=== PATIENT | female | born 1945 | race Hispanic/Latino ===

== ENCOUNTER 2017-01-30 05:35 | Outpatient (CLI) | payer BC ==
[~2017-01-30] VITALS: Ht 160 cm; Wt 76.2 kg
[~2017-01-30 05:35] MED LIST: ESTROBLEND PO; MTC5T; NF-ESOM40C; OMEP20CA12 PO; PRAV80TA2 PO; TOLTA4 PO; TOLTERODINE
[2017-01-30] MEDS ORDERED: TOLT4CAP13 PO (12:31)
[2017-01-30] MEDS ORDERED: OMEP40CA36 PO (12:31)
[2017-01-30] MEDS ORDERED: PRAV40TA2 PO (12:31)
[2017-01-30] MEDS ORDERED: LOSA25TA21 PO (12:31)
== END 2017-01-30 12:51 ==
LOC: PREOP 05:35
PROVIDERS: ATTEND Surgery
DX: Z01.818 Encounter for other preprocedural examination (principal); Z12.11 Encounter for screening for malignant neoplasm of colon

== ENCOUNTER 2017-02-03 07:18 | Day surgery (SDC) | payer BC ==
[~2017-02-03] VITALS: Ht 160 cm; Wt 76.2 kg
[~2017-02-03 07:18] MED LIST changes: +LOSA25TA21 PO; +OMEP40CA36 PO; +PRAV40TA2 PO; +TOLT4CAP13 PO
--- OUTSIDE RECORDS SUMMARY | 2017-02-03 07:29 | XMS REPORT ---
Author JUANA Stanton Organization [employer] Address Unknown Phone Unavailable Care Team Providers Care Author Name Role Phone JUANA BUENO Unavailable Allergies No Known Allergies Problems Problem Type Condition Code Onset Dates Condition Status Assessment Encounter for immunization Z23 Active Medications No Known Medications Procedures Procedure Coding System Code Date FLUARIX QUAD (3 & UP)-GSK-2014 CPT-4 65719 Jan 05, 2015 SINGLE IMMUNIZATION ADMIN CPT-4 66932 Jan 05, 2015 TDAP (BOOSTRIX) CPT-4 83598 Jan 05, 2015 IMMUNIZATION ADMIN, EACH ADD (please include units) CPT-4 16493 Jan 05, 2015 Results No Known Results Immunizations Vaccine Administration Date FLUARIX QUAD (3 & UP)-GSK-2014Jan 05, 2015 TDAP (BOOSTRIX) Jan 05, 2015 Summary Purpose [employer] Submission
--- OUTSIDE RECORDS SUMMARY | 2017-02-03 07:29 | XMS REPORT | Continuity of Care Document ---
Author Author [facility] Organization [facility] Address Unknown Phone Unavailable Allergies Active Description Code Type Severity Reaction Onset Reported/Identified Relationship to Patient Clinical Status Yes NKANo Known Allergies NKA Miscellaneous Allergy Moderate N/ A 06/16/2007 Yes diphenhydramine HCl [id number] Drug Allergy Unknown N/A 01/30/2017 Medications Problems Date Dx Coded Attending Type Code Diagnosis Diagnosed By 06/22/2010 Ot 574.10 05/23/2015 Ot V76.12 05/23/2015 Ot 574.20 05/23/2015 Ot V72.63 05/23/2015 Ot V74.8 05/23/2015 Ot V76.12 05/23/2015 Ot 530.5 05/23/2015 Ot 530.81 05/23/2015 Ot 787.03 05/23/2015 Ot 789.00 05/23/2015 Ot 553.3 05/23/2015 Ot 562.10 05/23/2015 Ot 787.01 05/23/2015 Ot 789.06 05/23/2015 Ot 535.50 05/23/2015 Ot V58.69 05/23/2015 Ot V72.84 05/23/2015 Ot 240.9 05/23/2015 Ot 785.6 05/23/2015 ROCCO ZAMBRANO [facility] Ot 241.0 05/23/2015 ROCCO ZAMBRANOP Ot V76.12 Procedures Results Encounters ACCT No. Visit Date/Time Discharge Status Pt. Type Provider Facility Loc./Unit Complaint [id number] 01/30/2017 05:35:00 2016 12:51:00 DIS Outpatient BALTAZAR BANKS MD [facility] PREOP COLONOSCOPY [id number] 05/23/2015 09:26:00 2015 23:59:59 CLS Outpatient COREY FARIAS APRN [facility] RAD [id number] 04/12/2013 09:21:00 2013 23:59:59 CLS Outpatient KENYA ROCCO Tna WELLNESS PROGRAM ADMINISTRATOR [facility] RAD [id number] 01/07/2013 10:29:00 2012 23:59:59 CLS Outpatient KENYANEVILLEROCCO M WELLNESS PROGRAM ADMINISTRATOR [facility] RAD [id number] 02/03/2017 07:18:00 ACT Outpatient DARREN BRAVO, BALTAZAR Tan [facility] ENDO SCREENING [id number] 12/30/2011 12:30:00 Document Registration [id number] 09/30/2011 06:39:00 Document Registration [id number] 09/27/2011 08:25:00 Document Registration [id number] 08/26/2011 07:42:00 Document Registration [id number] 07/24/2011 08:11:00 Document Registration [id number] 06/13/2011 08:20:00 Document Registration [id number] 06/04/2011 07:41:00 Document Registration [id number] 06/22/2010 05:32:00 Document Registration [id number] 06/21/2010 09:58:00 Document Registration [id number] 06/11/2010 08:13:00 Document Registration
[2017-02-03] MEDS ORDERED: NS IV 500 ML 500 ML IV PRN (07:30)
[2017-02-03 07:45] VITALS: BP 124/87
[2017-02-03] MEDS ORDERED: MIDAZOLAM 2 MG/2 ML (VERSED) VIAL ONE ×4 (07:56)
[2017-02-03] MEDS ORDERED: fentaNYL INJECTION 100 MCG/2 ML AMP ONE (07:56)
--- NOTE | 2017-02-03 08:10 | Conscious Sedation/ASA ---
Conscious Sedation Pre-Proced Time Reviewed: 07:58 ASA Class: 2 Airway Mallampati Classification: ([place] appropriate class) I. II. III, IV Lungs Heart ASA score ASA 1: a normal healthy patient ASA 2: a patient with a mild systemic disease (mid diabetes, controlled hypertension, obesity ASA 3: a patient with a severe systemic disease that limits activity (angina , COPD, prior Myocardial infarction) ASA 4: a patient with an incapacitating disease that is a constant threat to life (CHF, renal failure) ASA 5: a moribund patient not expected to survive 24 hrs. (ruptured aneurysm) ASA 6: a declared brain patient whose organs are being harvested. For emergent operations, add the letter E after the classification Grade 1 Sedation Plan: Discussed options with patient/fam Note The patient is an appropriate candidate to undergo the planned procedure, sedation, and anesthesia. The patient immediately re-assessed prior to indication. BALTAZAR BANKS MD Feb 03, 2017 8:10 am
--- NOTE | 2017-02-03 08:10 | History & Physicial ---
History of Present Illness History of Present Illness Reason for visit/HPI to undergo screening colonoscopy. She reports a personal history of polyps and a family history of colon cancer in her older sister. Date of Admission Date Seen by Provider: Feb 03, 2017 Time Seen by Provider: 08:08 I consulted on this patient on 02/03/17 08:08 Attending Physician Baltazar Juarez MD Admitting Physician Luba Nichole MD Consult Allergies and Home Medications Allergies Coded Allergies: diphenhydramine HCl (Unverified Allergy, Unknown, 01/30/17) Home Medications Losartan Potassium 25 Mg Tablet, 25 MG PO DAILY, (Reported) Omeprazole 40 Mg Capsule.dr, 40 MG PO DAILY, (Reported) Pravastatin Sodium 40 Mg Tablet, 40 MG PO DAILY, (Reported) Tolterodine Tartrate 4 Mg Cap.er.24h, 4 MG PO DAILY, (Reported) Past Qdmlkuo-Lhqbds-Urwgej Hx Patient Social History Marrital Status: Employed/Student: employed Alcohol Use: Occasionally Uses Number of Drinks Today: 0 Recreational Drug Use: No Smoking Status: Never a Smoker Recent Foreign Travel: No Contact w/other who traveled: No Recent Hopitalizations: No Recent Infectious Disease Expo: No Seasonal Allergies Seasonal Allergies: No Surgeries Yes Gallbladder, Hysterectomy Respiratory No Cardiovascular Yes Hypertension Neurological No Reproductive System Hx Reproductive Disorders: No Sexually Transmitted Disease: No 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 Genitourinary No Gastrointestinal No Musculoskeletal No Endocrine History of Endocrine Disorders: No HEENT History of HEENT Disorders: No Cancer No Psychosocial History of Psychiatric Problem: No Integumentary History of Skin or Integumenta: No Family Medical History Significant Family History: Cancer Constitutional: no symptoms reported EENTM: no symptoms reported Respiratory: no symptoms reported Cardiovascular: no symptoms reported Gastrointestinal: no symptoms reported Genitourinary: no symptoms reported Musculoskeletal: no symptoms reported Skin: no symptoms reported Psychiatric/Neurological: No Symptoms Reported Physical Exam Vital Signs Vital Sign - Last 12Hours 02/03/17 07:45 Temp 97.1 Pulse 85 Resp 16 B/P (MAP) 124/87 Pulse Ox 96 O2 Delivery Room Air Capillary Refill : General Appearance: No Apparent Distress HEENT: Normal ENT Inspection Neck: Normal Inspection Respiratory: Lungs Clear Cardiovascular: Regular Rate, Rhythm Gastrointestinal: Non Tender, Soft Rectal: Deferred Extremity: Normal Inspection Neurologic/Psychiatric: Oriented x3 Skin: Warm/Dry Assessment/Plan Assessment and Plan lady with a personal history of polyps and a family history of colon cancer. For screening colonoscopy. Details reviewed including iatrogenic perforation and post-polypectomy bleeding. Seems to be in agreement to proceed. Problems: BALTAZAR JUAREZ MD Feb 03, 2017 8:10 am
[2017-02-03] MEDS: MIDAZOLAM 2 MG/2 ML (VERSED) VIAL IVP PRN ×2 (08:13→08:15)
[2017-02-03] MEDS: fentaNYL INJECTION 100 MCG/2 ML AMP IVP PRN ×2 (08:16→08:18)
--- NOTE | 2017-02-03 08:38 | Endo Procedure Record ---
Endo Procedure Report Date of Procedure Feb 03, 2017 Surgeon (s) BALTAZAR BANKS MD Post Procedure/Op Diagnosis 1.1 mm rectal polyp 2. Sigmoid diverticulosis Procedure Performed colonoscopy to cecum Hot biopsy polypectomy Description of Procedure Anesthesia Type: Conscious Sedation Specimen(s) collected/removed rectal polyp Description of the Procedure Indication for procedure: This lady came in for surveillance colonoscopy. She reported a personal history of polyps and family history of colon cancer. Informed consent was obtained after reviewing the procedure in detail. Description of the procedure: She was placed in left lateral decubitus position and her vital signs were monitored. Conscious sedation was achieved using Versed and fentanyl. Digital rectal examination was unremarkable. The colonoscope was then introduced into the rectum and advanced all the way up to the cecum. The quality of bowel preparation was excellent. The scope was then withdrawn slowly and the mucosa examined in a systematic fashion. Findings: 1. 1 mm polyp at the distal rectum, that was excised with hot biopsy forceps 2. A few sigmoid diverticula. She tolerated the procedure well and was taken back to the nursing area in a stable condition. Impression: Surveillance colonoscopy. Small rectal polyp excised. Positive family history. Recommend repeating in 3 years. Copies To: VENU URBINA MD, XAVIER M MD Feb 03, 2017 8:38 am
--- NOTE | 2017-02-03 08:39 | Discharge Inst-Simple/Standard ---
Discharge Inst-Standard Discharge Medications New, Converted or Re-Newed RX: Other Patient Instructions/Follow Up Plan of Care/Instructions/FU: repeat colonoscopy in 3 years. Activity as Tolerated: Yes Discharge Diet: No Restrictions BALTAZAR BANKS MD Feb 03, 2017 8:39 am
[2017-02-03 08:55] VITALS: BP 123/71
[2017-02-03 09:25] VITALS: BP 124/84
[2017-02-03 09:35] VITALS: BP 124/84
== END 2017-02-03 09:35 | disposition home or self-care (01) ==
LOC: ENDO 07:18
PROVIDERS: ATTEND Surgery
DX: D12.8 Benign neoplasm of rectum (principal); K57.30 Diverticulosis of large intestine without perforation or abscess without bleeding; Z80.0 Family history of malignant neoplasm of digestive organs; Z86.010 Personal history of colon polyps; I10 Essential (primary) hypertension; Z79.899 Other long term (current) drug therapy
CPT/HCPCS: 88305

== ENCOUNTER 2017-03-26 08:17 | Outpatient (RCR) | payer BC | END 2017-03-26 09:25 | disposition home or self-care (01) | PROVIDERS: ATTEND Emergency Medicine | DX: M25.811 Other specified joint disorders, right shoulder (principal) ==

== ENCOUNTER 2017-08-28 20:40 | Emergency (ER) | payer BC ==
[~2017-08-28] VITALS: Ht 160 cm; Wt 59.0 kg
--- OUTSIDE RECORDS SUMMARY | 2017-08-28 21:11 | XMS REPORT | Continuity of Care Document ---
Author Author [facility] Organization [facility] Address Unknown Phone Unavailable Allergies Active Description Code Type Severity Reaction Onset Reported/Identified Relationship to Patient Clinical Status Yes NKANo Known Allergies NKA Miscellaneous Allergy Moderate N/A 06/16/2007 Yes diphenhydramine HCl [id number] Drug Allergy Unknown N/A 01/30/2017 Medications There is no data. 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 NURSE Ot V76.12 02/03/2017 BALTAZAR BANKS MD Ot D12.8 BENIGN NEOPLASM OF RECTUM 02/03/2017 BALTAZAR BANKS MD Ot I10 ESSENTIAL (PRIMARY) HYPERTENSION 02/03/2017 BALTAZAR BANKS MD Ot K57.30 DVRTCLOS OF LG INT W/O PERFORATION OR AB 02/03/2017 BALTAZAR BANKS MD Ot Z79.899 OTHER GARMENT FINISHER (CURRENT) DRUG THERAPY 02/03/2017 BALTAZAR BANKS MD Ot Z80.0 FAMILY HISTORY OF MALIGNANT NEOPLASM OF 02/03/2017 BALTAZAR BANKS MD Ot Z86.010 PERSONAL HISTORY OF COLONIC POLYPS 02/10/2017 BALTAZAR BANKS MD Ot D12.8 BENIGN NEOPLASM OF RECTUM 02/10/2017 BALTAZAR BANKS MD Ot I10 ESSENTIAL (PRIMARY) HYPERTENSION 02/10/2017 BALTAZAR BANKS MD Ot K57.30 DVRTCLOS OF LG INT W/O PERFORATION OR AB 02/10/2017 BALTAZAR BANKS MD Ot Z79.899 OTHER HALF-WAY (CURRENT) DRUG THERAPY 02/10/2017 BALTAZAR BANKS MD, Ot Z80.0 FAMILY HISTORY OF MALIGNANT NEOPLASM OF 02/10/2017 BALTAZAR BANKS MD, Ot Z86.010 PERSONAL HISTORY OF COLONIC POLYPS 03/06/2017 OPHELIA LOPES DO Ot M25.811 OTHER SPECIFIED JOINT DISORDERS, RIGHT S 03/26/2017 OPHELIA LOPES DO Ot M25.811 OTHER SPECIFIED JOINT DISORDERS, RIGHT S Procedures There is no data. Results There is no data. Encounters ACCT No. Visit Date/Time Discharge Status Pt. Type Provider Facility Loc./Unit Complaint [id number] 03/26/2017 08:17:00 03/26/2017 09:25:00 DIS Outpatient OPHELIA LOPES DO [facility] REHAB R SHOULDER IMPINGEMENT SYNDROME [id number] 02/03/2017 07:18:00 02/03/2017 09:35:00 DIS Outpatient BALTAZAR BANKS MD [facility] ENDO SCREENING [id number] 01/30/2017 05:35:00 01/30/2017 12:51:00 DIS Outpatient BALTAZAR BANKS MD [facility] PREOP COLONOSCOPY [id number] 05/23/2015 09:26:00 05/23/2015 23:59:59 CLS Outpatient COREY FARIAS APRN [facility] RAD [id number] 04/12/2013 09:21:00 04/12/2013 23:59:59 CLS Outpatient ROCCO ZAMBRANO [facility] RAD [id number] 01/07/2013 10:29:00 01/07/2013 23:59:59 CLS Outpatient ROCCO ZAMBRANO [facility] [id number] 12/30/2011 12:30:00 Document Registration [id number] 09/30/2011 06:39:00 Document Registration [id number] 09/27/2011 08:25:00 Document Registration [id number] 08/26/2011 07:42:00 Document Registration [id number] 07/24/2011 08:11:00 Document Registration [id number] 06/13/2011 08:20:00 Document Registration [id number] 06/04/2011 07:41:00 Document Registration [id number] 06/22/2010 05:32:00 Document Registration [id number] 06/21/2010 09:58:00 Document Registration [id number] 06/11/2010 08:13:00 Document Registration 000 01/05/2017 11:20:01 01/05/2017 23:59:59 CLS Outpatient
--- NOTE | 2017-08-28 21:44 | Diagnostic Imaging Report ---
PROCEDURE: CT head without contrast. TECHNIQUE: Multiple contiguous axial images were obtained through the brain without the use of intravenous contrast. INDICATION: Hit posterior side of the head on wheelchair, headache, pain posterior side EXAMINATION: CT brain without contrast from 08/28/2017 FINDINGS: Hyperdensities along the midline of the posterior falx most likely due to the normal dural flexion and calcification. No definite acute hemorrhage is seen. No mass, mass effect or midline shift is noted. There is no hydrocephalus. Chronic ischemic changes seen in a periventricular distribution bilaterally. There is mild atrophy. The paranasal sinuses and mastoid air cells are clear. There are no depressed fractures. IMPRESSION: 1. Chronic changes as described. No acute intracranial process. Dictated by: Dictated on workstation # [id number]
--- NOTE | 2017-08-28 21:49 | Diagnostic Imaging Report ---
INDICATION: Fell, landed on posterior side of the right hip and complaining of pain. EXAMINATION: Pelvis and right hip, 08/28/2017. FINDINGS: Three views of the right hip and pelvis. There is no evidence for an acute fracture or dislocation. The joint spaces are well maintained. There is no significant soft tissue swelling. IMPRESSION: No acute process. Dictated by: Dictated on workstation # [id number]
[2017-08-28] MEDS ORDERED: ACETAMINOPHEN 325 MG TABLET/CAPLET (TYLENOL) PO STA (21:54)
[2017-08-28] MEDS ORDERED: TETANUS,DIPTH,PERTUSS P/F (BOOSTRIX) 0.5 ML VIAL IM STA (21:54)
--- NOTE | 2017-08-28 22:02 | ED Fall/Injury ---
General Chief Complaint: Trauma-Non Activation Stated Complaint: FALL;HEAD INJ Nursing Triage Note: Pt fell while walking up bleacher steps. History of Present Illness Date Seen by Provider: Aug 28, 2017 Time Seen by Provider: 20:55 Initial Comments 72-year-old female was on bleachers [place] baseball [place] when her shoe and foot slipped causing her to fall backwards hitting her head and right hip. She denies a loss of consciousness, she does report some dizziness, no nausea or vomiting since the injury. Her daughter does report some nystagmus immediately after, that has improved. She does not take any anticoagulants. She denies any back or neck pain. There are no paresthesias or radicular symptoms in her upper or lower extremities. Location Injury Occurred: [place] Occurred: just prior to arrival Severity: mild Injuries/Pain Location: head, pelvis (right posterior hip) Loss of Consciousness: no loss of consciousness Associated Symptoms (Fall): Dizziness, Headache; No Lightheadedness, No Muscle Spasms, No Nausea/Vomiting, No Ringing in Ears, No Seizures, No Slurred Speech, No Trouble Walking, No Vision Changes Allergies and Home Medications Allergies Coded Allergies: diphenhydramine HCl (Unverified Allergy, Unknown, 01/30/17) Home Medications Losartan Potassium 25 Mg Tablet, 25 MG PO DAILY, (Reported) Omeprazole 40 Mg Capsule.dr, 40 MG PO DAILY, (Reported) Pravastatin Sodium 40 Mg Tablet, 40 MG PO DAILY, (Reported) Tolterodine Tartrate 4 Mg Cap.er.24h, 4 MG PO DAILY, (Reported) Patient Home Medication List Home Medication List Reviewed: Yes Review of Systems Constitutional: no symptoms reported, see HPI Eyes: No Symptoms Reported, See HPI Ears, Nose, Mouth, Throat: no symptoms reported, see HPI Respiratory: no symptoms reported, see HPI Cardiovascular: no symptoms reported, see HPI Gastrointestinal: no symptoms reported, see HPI Musculoskeletal: see HPI, joint pain (right hip), muscle pain Skin: see HPI, other (occipital laceration) Psychiatric/Neurological: See HPI, Headache All Other Systems Reviewed Negative Unless Noted: Yes Past Rtkocza-Lqfnaz-Lboxxd Hx Past Med/Social Hx: Reviewed Nursing Past Med/Soc Hx Patient Social History Alcohol Use: Denies Use Recreational Drug Use: No Smoking Status: Never a Smoker 2nd Hand Smoke Exposure: No Recent Foreign Travel: No Contact w/Someone Who Travel: No Recent Infectious Disease Expo: No Recent Hopitalizations: No Physical Abuse: No Sexual Abuse: No Mistreated: No Fear: No Immunizations Up To Date Tetanus Booster (TDap): Unknown Seasonal Allergies Seasonal Allergies: No Past Medical History Surgeries: Yes Gallbladder, Hysterectomy Respiratory: No Cardiac: Yes Hypertension Neurological: No Reproductive Disorders: No 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 Sexually Transmitted Disease: No Genitourinary: No Gastrointestinal: No Musculoskeletal: No Endocrine: No HEENT: No Cancer: No Psychosocial: No Nursing Suicide Risk Score: 1 Integumentary: No Blood Disorders: No Family Medical History Cancer Physical Exam Vital Signs Vital Signs - First Documented 08/28/17 20:58 Temp 98.0 Pulse 84 Resp 18 B/P (MAP) 132/94 (107) Pulse Ox 95 O2 Delivery Room Air Capillary Refill : Less Than 3 Seconds General Appearance: WD/WN, mild distress HEENT: PERRL/EOMI, normal ENT inspection, TMs normal, pharynx normal, other (2 cm occipital laceration ) Neck: non-tender, full range of motion, supple, normal inspection Cardiovascular: normal peripheral pulses, regular rate, rhythm, no edema, no murmur Respiratory: chest non-tender, lungs clear, normal breath sounds Gastrointestinal: normal bowel sounds, non tender, soft Back: normal inspection, no vertebral tenderness; No decreased range of motion , No vertebral tenderness Extremities: normal range of motion, normal inspection, normal capillary refill , pelvis stable, other (tenderness right posterior hip, full range of motion to the right hip with no pain. Negative straight leg raising sign.) Neurologic/Psychiatric: no motor/sensory deficits, alert, normal mood/affect, oriented x 3, other (negative Romberg) Skin: normal color, warm/dry Prisca Coma Score Best Eye Response: (4) Open Spontaneously Best Verbal Response: (5) Oriented Best Motor Response: (6) Obeys Commands Prisca Total: 15 Procedures/Interventions Wound Location: Scalp (occipital) Wound Length (cm): 2 Wound's Depth, Shape: superficial Wound Explored: clean Irrigated w/ Saline (ccs): 500 Betadine Prep?: Yes Staple Repair: Stapler 35W Sterile Dressing Applied?: No 3 delores were placed and wound was well approximated. Patient tolerated procedure well. Progress/Results/Core Measures Results/Orders My Orders Orders - AARON,ANALI CREATIVE SERVICES COORDINATOR Ct Head Wo (08/28/17 20:54) Pelvis With Right Hip 2-3views (08/28/17 21:18) Dipht,Pertuss(Acell),Tet Adult (Boostrix (08/28/17 21:54) Acetaminophen Tablet/Caplet (Tylenol T (08/28/17 21:54) Rx-Cyclobenzaprine Tablet (Rx-Flexeril T (08/28/17 22:30) Rx-Cyclobenzaprine Tablet (Rx-Flexeril T (08/28/17 22:31) Vital Signs/I&O 08/28/17 20:58 Temp 98.0 Pulse 84 Resp 18 B/P (MAP) 132/94 (107) Pulse Ox 95 O2 Delivery Room Air Blood Pressure Mean: 107 Progress Progress Note : Time: 20:55 Progress Note Initial evaluation completed, recommended CT of the head and x-ray of the pelvis and right hip. Tylenol 650 mg by mouth for pain and tetanus booster. 2129 laceration occipital region irrigated with 500 ML's of sterile saline and Hibiclens. Laceration well approximated with [address] scan and x -rays discussed with the patient and her daughter. 220 patient ambulates with a trace antalgic gait the right groin and buttocks pain. She is able to ambulate on her toes and heels with no difficulty. No vertigo with changing positions. Discharge instructions and return precautions reviewed with the patient. All questions answered. Diagnostic Imaging Diagonstic Imaging: Xray Plain Films/CT/US/NM/MRI: pelvis, hip Comments NAME: [facility] REC#: [id number] PT STATUS: REG ER : 1945 PHYSICIAN: ANALI WALKER ADMIT DATE: 08/28/17/ER Draft Date of Exam:08/28/17 PELVIS WITH RIGHT HIP 2-3VIEWS INDICATION: Fell, landed on posterior side of the right hip and complaining of pain. EXAMINATION: Pelvis and right hip, 08/28/2017. FINDINGS: Three views of the right hip and pelvis. There is no evidence for an acute fracture or dislocation. The joint spaces are well maintained. There is no significant soft tissue swelling. IMPRESSION: No acute process. Dictated on workstation # [id number] Dict: 08/28/172138 Trans: 08/28/172148 [facility] [phone] Interpreted by: CHRIS MENDOZA MD Electronically signed by: Reviewed: Reviewed by Me Diagonstic Imaging: CT Plain Films/CT/US/NM/MRI: head Comments NAME: [facility] REC#: [id number] PT STATUS: REG ER : 1945 PHYSICIAN: ANALI WALKER ADMIT DATE: 08/28/17/ER Draft Date of Exam:08/28/17 CT HEAD WO PROCEDURE: CT head without contrast. TECHNIQUE: Multiple contiguous axial images were obtained through the brain without the use of intravenous contrast. INDICATION: Hit posterior side of the head on wheelchair, headache, pain posterior side EXAMINATION: CT brain without contrast from 08/28/2017 FINDINGS: Hyperdensities along the midline of the posterior falx most likely due to the normal dural flexion and calcification. No definite acute hemorrhage is seen. No mass, mass effect or midline shift is noted. There is no hydrocephalus. Chronic ischemic changes seen in a periventricular distribution bilaterally. There is mild atrophy. The paranasal sinuses and mastoid air cells are clear. There are no depressed fractures. IMPRESSION: 1. Chronic changes as described. No acute intracranial process. Dictated on workstation # [id number] Dict: 08/28/172127 Trans: 08/28/172142 [facility] [phone] Interpreted by: CHRIS MENDOZA MD Electronically signed by: Reviewed: Reviewed by Me Departure Impression Primary Impression: Fall Qualified Codes: W19.XXXA - Unspecified fall, initial encounter Additional Impressions: Minor head injury without loss of consciousness Qualified Codes: S09.90XA - Unspecified injury of head, initial encounter Contusion of right hip Qualified Codes: S70.01XA - Contusion of right hip, initial encounter Disposition: 01 HOME, SELF-CARE Condition: Stable Departure-Patient Inst. Decision time for Depature: 22:30 Referrals: OPHELIA LOPES DO (PCP) Primary Care Physician Patient Instructions: Hip Pain (DC), Minor Head Injury (DC) Add. Discharge Instructions: Ice to right hip and head laceration 20 minutes every 2 hours as needed for pain. You may take Tylenol 650 mg every 6 hours for hip pain or headache. Remove delores in 7-10 days, you may return to the emergency department or see your primary care provider. Follow-up with your primary care provider in 3-4 days if symptoms are not improving or worsen. You may return to work 09/08/17, if you are having no further symptoms. Otherwise , see Dr. Nichole for additional restrictions. Return to the emergency department immediately for headache with associated nausea and vomiting, seizure activity, change in level of consciousness or mental status, or new health problems. All discharge instructions reviewed with patient and/or family. Voiced understanding. Work/School Note: Work Release Form Date Seen in the Emergency Department: Aug 28, 2017 Return to Work: Sep 08, 2017 Restrictions: No Restrictions Copy Copies To 1: VENU NICHOLE MD, AMY ARNP Aug 28, 2017 22:02
[2017-08-28] MEDS ORDERED: RX-CYCLOBENZAPRINE 10 MG (FLEXERIL) TAB PPK#3 PO STA (22:30)
[2017-08-28] MEDS ORDERED: RX-CYCLOBENZAPRINE 10 MG (FLEXERIL) TAB PPK#3 PO ONE (22:31)
[2017-08-28 22:35] VITALS: BP 121/69
== END 2017-08-28 22:35 | disposition home or self-care (01) ==
LOC: EDUNIT# 20:40 → ER 20:41
DX: S09.90XA Unspecified injury of head, initial encounter (principal); S01.01XA Laceration without foreign body of scalp, initial encounter; S70.01XA Contusion of right hip, initial encounter; I10 Essential (primary) hypertension; R40.2142 Coma scale, eyes open, spontaneous, at arrival to emergency department; R40.2252 Coma scale, best verbal response, oriented, at arrival to emergency department; R40.2362 Coma scale, best motor response, obeys commands, at arrival to emergency department; Z23 Encounter for immunization; Z88.8 Allergy status to other drugs, medicaments and biological substances; Z90.710 Acquired absence of both cervix and uterus; W01.198A Fall on same level from slipping, tripping and stumbling with subsequent striking against other object, initial encounter; Y92.39 Other specified sports and athletic area as the place of occurrence of the external cause
CPT/HCPCS: 70450; 90471; 90715

== ENCOUNTER 2018-01-19 06:50 | Outpatient (CLI) | payer BC ==
[~2018-01-19] VITALS: Ht 162.6 cm; Wt 63.5 kg
[~2018-01-19 06:50] MED LIST changes: -LOSA25TA21 PO; +LOSA25TA6 PO
[2018-01-19] MEDS ORDERED: BACI1TAB2 PO (15:05)
== END 2018-01-19 15:10 | disposition home or self-care (01) ==
LOC: PREOP 06:50
PROVIDERS: ATTEND Specialist
DX: Z01.818 Encounter for other preprocedural examination (principal)

== ENCOUNTER 2018-02-24 05:37 | Outpatient (CLI) | payer BC ==
[~2018-02-24] VITALS: Ht 162.6 cm; Wt 63.5 kg
[~2018-02-24 05:37] MED LIST changes: +BACI1TAB2 PO
== END 2018-02-24 11:59 | disposition home or self-care (01) ==
LOC: PREOP 05:37
PROVIDERS: ATTEND Specialist
DX: Z01.818 Encounter for other preprocedural examination (principal)

== ENCOUNTER 2018-02-27 05:55 | Day surgery (SDC) | payer BC ==
[~2018-02-27] VITALS: Ht 162.6 cm; Wt 63.5 kg
[2018-02-27 06:05] VITALS: BP 146/81
--- OUTSIDE RECORDS SUMMARY | 2018-02-27 06:10 | XMS REPORT ---
Author Author MARANDA CARRILLO [facility] Address [address] [place] [address] Care Team Providers Care Biosolids Management Technician Name Role Phone MARANDA CARRILLO Unavailable PROBLEMS Unknown Problems ALLERGIES No Information ENCOUNTERS Encounter Location Date Diagnosis [facility] [id number] [place] [phone] Dec, Encounter for immunization Z23 [facility] [id number] [place] [phone] Nov, Acute nasopharyngitis J00 and Sinus congestion R09.81 [facility] [id number] [place] [phone] Dec, Encounter for immunization Z23 [facility] [id number] [place] [address] [phone] Dec, [facility] [id number] [place] [address] [phone] May, [facility] [id number] [place] [phone] Jan, [facility] [id number] [place] [address] [phone] Oct, [facility] [id number] [place] [address] [phone] May, IMMUNIZATIONS Vaccine Route Administration Date Status FLULAVAL QUAD 0.5ML (6 MO & UP) 2018 IM Intramuscular Jan 06, 2018 Administered SOCIAL HISTORY Never Assessed REASON FOR VISIT FLU SHOT PLAN OF CARE VITAL SIGNS MEDICATIONS Unknown Medications RESULTS No Results PROCEDURES Procedure Date Ordered Result Body Site FLULAVAL QUAD 0.5ML (6 MO AND UP) 2018 Jan 06, 2018 SINGLE IMMUNIZATION ADMIN Jan 06, 2018 INSTRUCTIONS MEDICATIONS ADMINISTERED No Known Medications MEDICAL (GENERAL) HISTORY Type Description Date Medical History GERD Medical History HTN Medical History Hyperlipids Medical History Over active bladder Surgical History No Surgical history information
--- OUTSIDE RECORDS SUMMARY | 2018-02-27 06:10 | XMS REPORT | Continuity of Care Document ---
Author Author [facility] Organization [facility] Address Unknown Phone Unavailable Allergies Active Description Code Type Severity Reaction Onset Reported/Identified Relationship to Patient Clinical Status Yes NKANo Known Allergies NKA Miscellaneous Allergy Moderate N/A 06/16/2007 Yes diphenhydramine HCl [id number] Drug Allergy Unknown N/A 01/30/2017 Medications There [...] 240.9 05/23/2015 Ot 785.6 05/23/2015 ROCCO ZAMBRANO SLITTER AND REWINDER MACHINE OPERATOR Ot 241.0 05/23/2015 ROCCO ZAMBRANO SLITTER AND REWINDER MACHINE OPERATOR Ot V76.12 01/30/2017 BALTAZAR BANKS MD Ot Z01.818 ENCOUNTER FOR OTHER PREPROCEDURAL EXAMIN 01/30/2017 BALTAZAR BANKS MD Ot Z12.11 ENCOUNTER FOR SCREENING FOR MALIGNANT NE 02/03/2017 BALTAZAR BANKS MD Ot D12.8 BENIGN NEOPLASM OF RECTUM 02/03/2017 BALTAZAR BANKS MD Ot I10 ESSENTIAL (PRIMARY) HYPERTENSION 02/03/2017 BALTAZAR BANKS MD Ot K57.30 DVRTCLOS OF LG INT W/O PERFORATION OR AB 02/03/2017 BALTAZAR BANKS MD Ot Z79.899 OTHER PENITENTIARY (CURRENT) DRUG THERAPY 02/03/2017 BALTAZAR BANKS MD Ot Z80.0 FAMILY HISTORY OF MALIGNANT NEOPLASM OF 02/03/2017 BALTAZAR BANKS MD Ot Z86.010 PERSONAL HISTORY OF COLONIC POLYPS 02/10/2017 BALTAZAR BANKS MD Ot D12.8 BENIGN NEOPLASM OF RECTUM 02/10/2017 BALTAZAR BANKS MD Ot I10 ESSENTIAL (PRIMARY) HYPERTENSION 02/10/2017 BALTAZAR BANKS MD Ot K57.30 DVRTCLOS OF LG INT W/O PERFORATION OR AB 02/10/2017 BALTAZAR BANKS MD, Ot Z79.899 OTHER [facility] PLANNER (CURRENT) DRUG THERAPY 02/10/2017 BALTAZAR BANKS MD Ot Z80.0 FAMILY HISTORY OF MALIGNANT NEOPLASM OF 02/10/2017 BALTAZAR BANKS MD, Ot Z86.010 PERSONAL HISTORY OF COLONIC POLYPS 03/06/2017 OPHELIA LOPES DO Ot M25.811 OTHER SPECIFIED JOINT DISORDERS, RIGHT S 03/26/2017 OPHELIA LOPES DO Ot M25.811 OTHER SPECIFIED JOINT DISORDERS, RIGHT S 08/28/2017 ROCCO ZAMBRANO Ot 241.0 NONTOX UNINODULAR GOITER 08/28/2017 ROCCO ZAMBRANO Ot V76.12 OTH SCREEN MAMMO-MALIGN NEOPLASM OF GLADYS 08/28/2017 COREY FARIAS APRN Ot Z12.31 ENCNTR SCREEN MAMMOGRAM FOR MALIGNANT NE 08/28/2017 ANALI WALKER Ot I10 ESSENTIAL (PRIMARY) HYPERTENSION 08/28/2017 ANLAI WALKERP Ot R40.2142 COMA SCALE, EYES OPEN, SPONTANEOUS, EMR 08/28/2017 ANALI WALKERP Ot R40.2252 COMA SCALE, BEST VERBAL RESPONSE, ORIENT 08/28/2017 ANALI WALKERP Ot R40.2362 COMA SCALE, BEST MOTOR RESPONSE, OBEYS C 08/28/2017 ANALI WALKERP Ot S01.01XA LACERATION WITHOUT FOREIGN BODY OF SCALP 08/28/2017 ANALI WALKER SLITTER AND REWINDER MACHINE OPERATOR Ot S09.90XA UNSPECIFIED INJURY OF HEAD, INITIAL ENCO 08/28/2017 AARON, ANALI RICHP Ot S70.01XA CONTUSION OF RIGHT HIP, INITIAL ENCOUNTE 08/28/2017 AARON, ANALI SLITTER AND REWINDER MACHINE OPERATOR Ot W01.198A FALL SAME LEV FROM SLIP/TRIP W STRIKE AG 08/28/2017 ANALI WALKER SLITTER AND REWINDER MACHINE OPERATOR Ot Y92.39 OT [employer] AND [employer] AREA PLACE 08/28/2017 AARONANALI Santillan SLITTER AND REWINDER MACHINE OPERATOR Ot Z23 ENCOUNTER FOR IMMUNIZATION 08/28/2017 ANALI WALKER SLITTER AND REWINDER MACHINE OPERATOR Ot Z88.8 ALLERGY STATUS TO OTH DRUG/MEDS/BIOL SUB 08/28/2017 AARON ANALI SLITTER AND REWINDER MACHINE OPERATOR Ot Z90.710 ACQUIRED ABSENCE OF BOTH CERVIX AND UTER 08/29/2017 ROCCO ZAMBRANO SLITTER AND REWINDER MACHINE OPERATOR Ot 241.0 NONTOX UNINODULAR GOITER 08/29/2017 ROCCO ZAMBRANO SLITTER AND REWINDER MACHINE OPERATOR Ot V76.12 OTH SCREEN MAMMO-MALIGN NEOPLASM OF GLADYS 08/29/2017 COREY FARIAS APRN Ot Z12.31 ENCNTR SCREEN MAMMOGRAM FOR MALIGNANT NE 09/01/2017 ANALI WALKER SLITTER AND REWINDER MACHINE OPERATOR Ot I10 ESSENTIAL (PRIMARY) HYPERTENSION 09/01/2017 AARON ANALI SLITTER AND REWINDER MACHINE OPERATOR Ot R40.2142 COMA SCALE, EYES OPEN, SPONTANEOUS, EMR 09/01/2017 AARON ANALI SLITTER AND REWINDER MACHINE OPERATOR Ot R40.2252 COMA SCALE, BEST VERBAL RESPONSE, ORIENT 09/01/2017 AARON, ANALI SLITTER AND REWINDER MACHINE OPERATOR Ot R40.2362 COMA SCALE, BEST MOTOR RESPONSE, OBEYS C 09/01/2017 ANALI WALKER SLITTER AND REWINDER MACHINE OPERATOR Ot S01.01XA LACERATION WITHOUT FOREIGN BODY OF SCALP 09/01/2017 ANALI WALKER SLITTER AND REWINDER MACHINE OPERATOR Ot S09.90XA UNSPECIFIED INJURY OF HEAD, INITIAL ENCO 09/01/2017 AARON, ANALI SLITTER AND REWINDER MACHINE OPERATOR Ot S70.01XA CONTUSION OF RIGHT HIP, INITIAL ENCOUNTE 09/01/2017 ANALI WALKER SLITTER AND REWINDER MACHINE OPERATOR Ot W01.198A FALL SAME LEV FROM SLIP/TRIP W STRIKE AG 09/01/2017 ANALI WALKER SLITTER AND REWINDER MACHINE OPERATOR Ot Y92.39 [facility] [facility] [employer] [facility]A [facility] 09/01/2017 ANALI WALKER SLITTER AND REWINDER MACHINE OPERATOR Ot Z23 ENCOUNTER FOR IMMUNIZATION 09/01/2017 ANALI WALKER SLITTER AND REWINDER MACHINE OPERATOR Ot Z88.8 ALLERGY STATUS TO OTH DRUG/MEDS/BIOL SUB 09/01/2017 ANALI WALKERP Ot Z90.710 ACQUIRED ABSENCE OF BOTH CERVIX AND UTER 01/21/2018 GURPREET CAMPOVERDE MD Ot Z01.818 ENCOUNTER FOR OTHER PREPROCEDURAL EXAMIN 02/24/2018 GURPREET CAMPOVERDE MD Ot Z01.818 ENCOUNTER FOR OTHER PREPROCEDURAL EXAMIN 02/25/2018 GURPREET CAMPOVERDE MD Ot Z01.818 ENCOUNTER FOR OTHER PREPROCEDURAL EXAMIN Procedures There is no data. Results There is no data. Encounters ACCT No. Visit Date/Time Discharge Status Pt. Type Provider Facility Loc./Unit Complaint [id number] 02/24/2018 05:37:00 02/24/2018 11:59:00 DIS Outpatient GURPREET CAMPOVERDE MD [facility] PREOP CATARACT RIGHT EYE [id number] 01/23/2018 11:00:00 01/23/2018 23:59:59 CLS Preadmit GURPREET CAMPOVERDE MD [facility] SDC CATARACT RIGHT EYE [id number] 01/19/2018 06:50:00 01/19/2018 15:10:00 DIS Outpatient GURPREET CAMPOVERDE MD [facility] PREOP CATARACT RIGHT EYE [id number] 08/28/2017 20:41:00 08/28/2017 22:35:00 DIS Emergency ANALI WALKERP [facility] ER FALL;HEAD INJ [id number] 03/26/2017 08:17:00 03/26/2017 09:25:00 DIS Outpatient OPHELIA LOPES DO [facility] REHAB R SHOULDER IMPINGEMENT SYNDROME [id number] 02/03/2017 07:18:00 02/03/2017 09:35:00 DIS Outpatient BALTAZAR BANKS MD [facility] ENDO SCREENING [id number] 01/30/2017 05:35:00 01/30/2017 12:51:00 DIS Outpatient BALTAZAR BANKS MD [facility] PREOP COLONOSCOPY [id number] 05/23/2015 09:26:00 05/23/2015 23:59:59 CLS Outpatient COREY FARISA APRN [facility] RAD SCREENING [id number] 04/12/2013 09:21:00 04/12/2013 23:59:59 CLS Outpatient ROCCO ZAMBRANO [facility] RAD SCREENING [id number] 01/07/2013 10:29:00 01/07/2013 23:59:59 CLS Outpatient ROCCO ZAMBRANO [facility] RAD THYROID NODULE [id number] 02/27/2018 05:55:00 ACT Outpatient GURPREET CAMPOVERDE MD [facility] RIGHT EYE CATARACT [id number] 12/30/2011 12:30:00 Document Registration [id number] 09/30/2011 06:39:00 Document Registration [id number] 09/27/2011 08:25:00 Document Registration [id number] 08/26/2011 07:42:00 Document Registration [id number] 07/24/2011 08:11:00 Document Registration [id number] 06/13/2011 08:20:00 Document Registration [id number] 06/04/2011 07:41:00 Document Registration [id number] 06/22/2010 05:32:00 Document Registration [id number] 06/21/2010 09:58:00 Document Registration [id number] 06/11/2010 08:13:00 Document Registration 000 01/05/2017 11:20:01 01/05/2017 23:59:59 CLS Outpatient
--- OUTSIDE RECORDS SUMMARY | 2018-02-27 06:10 | XMS REPORT ---
Author Author JESSY ALBRECHT Organization [facility] Address [address] [place] [address] Care Team Providers Care Aluminum Shingle Roofer Name Role Phone JESSY ALBRECHT Unavailable PROBLEMS Unknown Problems ALLERGIES Substance Reaction Event Type Date Status Benadryl heart racing Drug Allergy Nov, Active ENCOUNTERS Encounter Location Date Diagnosis [facility] [id number] [place] [address] [id number] Nov, Acute nasopharyngitis J00 and Sinus congestion R09.81 [address] [phone] Dec, Encounter for immunization Z23 [facility] [id number] [place] [phone] Dec, [address] [phone] May, [facility] [id number] [place] [address] [phone] Jan, [facility] [id number] [place] [address] [phone] Oct, [address] [id number] [place] [phone] May, IMMUNIZATIONS No Known Immunizations SOCIAL HISTORY Never Assessed REASON FOR VISIT sinus congestion PLAN OF CARE Activity Details Follow Up prn if not improving in clinic or with PCP Reason: VITAL SIGNS Height 62 in 2017-11-26 Weight 160 lbs 2017-11-26 Temperature 98.4 degrees Fahrenheit 2017-11-26 Heart Rate 84 bpm 2017-11-26 Respiratory Rate 18 2017-11-26 Oximetry 98 % 2017-11-26 BMI 29.26 kg/m2 2017-11-26 Blood pressure systolic 140 mmHg 2017-11-26 Blood pressure diastolic 76 mmHg 2017-11-26 MEDICATIONS Medication Instructions Dosage Frequency Start Date End Date Duration Status Omeprazole Active Probiotic Active Flonase 50 mcg/act Nasally Once a day (twice per day for first 2 weeks) 1 spray in each nostril Nov, 30 day(s) Active Losartan Potassium Active Pravastatin Sodium Active Detrol LA Active RESULTS No Results PROCEDURES No Known procedures INSTRUCTIONS MEDICATIONS ADMINISTERED No Known Medications MEDICAL (GENERAL) HISTORY Type Description Date Medical History GERD Medical History HTN Medical History Hyperlipids Medical History Over active bladder Surgical History No Surgical history information
[2018-02-27] MEDS ORDERED: TIMOLOL MALEATE 0.5% 5 ML (TIMOPTIC) BTL OU PRN (06:15)
[2018-02-27] MEDS ORDERED: POVIDONE (BETADINE) OPHTH SOLN 5% 30 ML OP ONE (06:15)
[2018-02-27] MEDS ORDERED: LIDOCAINE PF 1% 2 ML AMP IR PRN (06:15)
[2018-02-27] MEDS ORDERED: MOXIFLOXACIN OPHTH SOLN 5 MG/ML 0.3 ML SYRINGE OP ONE (06:15)
[2018-02-27] MEDS: TETRACAINE 0.5% OPHTH SOLN 4 ML BTL (SINGLE DOSE ONLY) OU PRN ×4 (06:18→06:28)
[2018-02-27] MEDS: PHENYLEPHRINE 10% OPHTH (NEO-SYN) 5 ML BTL OU SCH ×3 (06:21→06:29)
[2018-02-27] MEDS: CYCLOPENTOLATE 1% (CYCLOGYL) 2 ML DROPS OP SCH ×3 (06:22→06:29)
[2018-02-27] MEDS ORDERED: MIDAZOLAM 2 MG/2 ML (VERSED) VIAL ONE (06:51)
--- NOTE | 2018-02-27 06:57 | Ophthalmologist Pre-Op Note ---
Pre-Operative Progress Note H&P Reviewed The H&P was reviewed, patient examined and no changes noted. Date H&P Reviewed: Feb 27, 2018 Time H&P Reviewed: 06:57 Pre-Op Dx Cataract, Right Eye GURPREET CAMPOVERDE MD Feb 27, 2018 06:57
--- NOTE | 2018-02-27 07:27 | Ophthalmology Operative Report ---
Cataract removal/placement IOL PREOPERATIVE DIAGNOSIS: Cataract Right Eye POSTOPERATIVE DIAGNOSIS: Cataract Right Eye PROCEDURE: Cataract removal and placement of posterior chamber implant, right eye SURGEON: Michael Campoverde ANESTHESIA: Topical with sedation COMPLICATIONS: None ESTIMATED BLOOD LOSS: Minimal DESCRIPTION OF PROCEDURE: After proper informed consent was obtained, the patient, a 72 female, was taken to the Operating Room and the right eye was anesthetized with tetracaine. The right eye was then prepped and draped in the usual manner. A wire lid speculum was placed. A paracentesis was made at the left hand position. Preservative free lidocaine was injected into the anterior chamber followed by viscoelastic. A clear corneal incision was made in the temporal position. A capsulorrhexis was preformed and the central nuclear and cortical material were removed. The posterior capsule was polished and Kris [id number] 19.5 IOL was placed into the capsular bag. The residual viscoelastic was aspirated and balanced saline solution was injected into the anterior chamber. Moxifloxacin was injected into the anterior chamber. The wound was checked and found to be water tight. The patient tolerated the procedure well without complications. MICHAEL CAMPOVERDE MD Feb 27, 2018 07:27
[2018-02-27] MEDS ORDERED: acetaZOLAMIDE ER 500 MG CAP (DIAMOX SEQUELS) PO ONE (07:30)
[2018-02-27 07:35] VITALS: BP 140/76
--- NOTE | 2018-02-27 13:29 | Anesthesia-General Post-Op ---
MAC Patient Condition Mental Status/LOC: Same as Preop Cardiovascular: Satisfactory Nausea/Vomiting: Absent Respiratory: Satisfactory Pain: Controlled Complications: Absent Post Op Complications Complications None Follow Up Care/Instructions Patient Instructions None needed. Anesthesiology Discharge Order Discharge Order Patient is doing well, no complaints, stable vital signs, no apparent adverse anesthesia problems. No complications reported per nursing. MAGGIE SCHMITT CRNA Feb 27, 2018 13:29
== END 2018-02-27 07:35 | disposition home or self-care (01) ==
LOC: SDC 05:55
PROVIDERS: ATTEND Specialist
DX: H25.11 Age-related nuclear cataract, right eye (principal); I10 Essential (primary) hypertension; K21.9 Gastro-esophageal reflux disease without esophagitis; Z79.899 Other long term (current) drug therapy

== ENCOUNTER 2018-03-16 05:35 | Outpatient (CLI) | payer BC ==
[~2018-03-16] VITALS: Ht 162.6 cm; Wt 63.5 kg
== END 2018-03-16 12:02 | disposition home or self-care (01) ==
LOC: PREOP 05:35
PROVIDERS: ATTEND Specialist
DX: Z01.818 Encounter for other preprocedural examination (principal)

== ENCOUNTER 2018-03-20 05:59 | Day surgery (SDC) | payer BC ==
[~2018-03-20] VITALS: Ht 162.6 cm; Wt 63.5 kg
--- OUTSIDE RECORDS SUMMARY | 2018-03-20 06:05 | XMS REPORT | Continuity of Care Document ---
Author Author [facility] Organization [facility] Address Unknown Phone Unavailable Allergies Active Description Code Type Severity Reaction Onset Reported/Identified Relationship to Patient Clinical Status Yes NKANo Known Allergies NKA Miscellaneous Allergy Moderate N/A 06/16/2007 Yes diphenhydramine HCl [id number] Drug Allergy Unknown N/A 01/30/2017 Medications There [...] 240.9 05/23/2015 Ot 785.6 05/23/2015 ROCCO ZAMBRANO SECURITY DIRECTOR Ot 241.0 05/23/2015 ROCCO ZABMRANO SECURITY DIRECTOR Ot V76.12 01/30/2017 BALTAZAR BANKS MD Ot [...] 02/03/2017 BALTAZAR BANKS MD Ot Z79.899 OTHER LONG-TERM (CURRENT) DRUG THERAPY 02/03/2017 BALTAZAR BANKS MD [...] 02/10/2017 BALTAZAR BANKS MD, Ot Z79.899 OTHER ASSOCIATE DIRECTOR OF SALES (CURRENT) DRUG THERAPY 02/10/2017 BALTAZAR BANKS MD [...] WALKER Ot I10 ESSENTIAL (PRIMARY) HYPERTENSION 08/28/2017 ANALI WALKERP Ot R40.2142 COMA SCALE, EYES OPEN, SPONTANEOUS, EMR 08/28/2017 ANALI WALKERP Ot R40.2252 COMA SCALE, BEST VERBAL RESPONSE, ORIENT 08/28/2017 ANALI WALKERP Ot R40.2362 COMA SCALE, BEST MOTOR RESPONSE, OBEYS C 08/28/2017 ANALI WALKERP Ot S01.01XA LACERATION WITHOUT FOREIGN BODY OF SCALP 08/28/2017 ANALI WALKER SECURITY DIRECTOR Ot S09.90XA UNSPECIFIED INJURY OF HEAD, INITIAL ENCO 08/28/2017 AARON, ANALI RICHP Ot S70.01XA CONTUSION OF RIGHT HIP, INITIAL ENCOUNTE 08/28/2017 AARON, ANALI SECURITY DIRECTOR Ot W01.198A FALL SAME LEV FROM SLIP/TRIP W STRIKE AG 08/28/2017 ANALI WALKER SECURITY DIRECTOR Ot Y92.39 OT SPORTS AND ATHLETIC AREA PLACE 08/28/2017 AARONANALI Santillan SECURITY DIRECTOR Ot Z23 ENCOUNTER FOR IMMUNIZATION 08/28/2017 ANALI WALKER SECURITY DIRECTOR Ot Z88.8 ALLERGY STATUS TO OTH DRUG/MEDS/BIOL SUB 08/28/2017 AARON ANALI SECURITY DIRECTOR Ot Z90.710 ACQUIRED ABSENCE OF BOTH CERVIX AND UTER 08/29/2017 ROCCO ZAMBRANO SECURITY DIRECTOR Ot 241.0 NONTOX UNINODULAR GOITER 08/29/2017 ROCCO ZAMBRANO SECURITY DIRECTOR Ot V76.12 OTH SCREEN MAMMO-MALIGN NEOPLASM OF GLADYS 08/29/2017 COREY FARIAS APRN Ot Z12.31 ENCNTR SCREEN MAMMOGRAM FOR MALIGNANT NE 09/01/2017 ANALI WALKER SECURITY DIRECTOR Ot I10 ESSENTIAL (PRIMARY) HYPERTENSION 09/01/2017 AARON ANALI SECURITY DIRECTOR Ot R40.2142 COMA SCALE, EYES OPEN, SPONTANEOUS, EMR 09/01/2017 AARON ANALI SECURITY DIRECTOR Ot R40.2252 COMA SCALE, BEST VERBAL RESPONSE, ORIENT 09/01/2017 AARON, ANALI SECURITY DIRECTOR Ot R40.2362 COMA SCALE, BEST MOTOR RESPONSE, OBEYS C 09/01/2017 ANALI WALKER SECURITY DIRECTOR Ot S01.01XA LACERATION WITHOUT FOREIGN BODY OF SCALP 09/01/2017 ANALI WALKER SECURITY DIRECTOR Ot S09.90XA UNSPECIFIED INJURY OF HEAD, INITIAL ENCO 09/01/2017 AARON, ANALI SECURITY DIRECTOR Ot S70.01XA CONTUSION OF RIGHT HIP, INITIAL ENCOUNTE 09/01/2017 ANALI WALKER SECURITY DIRECTOR Ot W01.198A FALL SAME LEV FROM SLIP/TRIP W STRIKE AG 09/01/2017 ANALI WALKER SECURITY DIRECTOR Ot Y92.39 [facility] SPORTS AND ATHLETIC AREA PLACE 09/01/2017 ANALI WALKER SECURITY DIRECTOR Ot Z23 ENCOUNTER FOR IMMUNIZATION 09/01/2017 ANALI WALKER SECURITY DIRECTOR Ot Z88.8 ALLERGY STATUS TO OTH DRUG/MEDS/BIOL SUB 09/01/2017 ANALI WALKER Ot Z90.710 ACQUIRED ABSENCE OF BOTH CERVIX AND UTER 01/21/2018 GURPREET CAMPOVERDE MD Ot Z01.818 ENCOUNTER FOR OTHER PREPROCEDURAL EXAMIN 02/24/2018 GURPREET CAMPOVERDE MD Ot Z01.818 ENCOUNTER FOR OTHER PREPROCEDURAL EXAMIN 02/25/2018 GURPREET CAMPOVERDE MD Ot Z01.818 ENCOUNTER FOR OTHER PREPROCEDURAL EXAMIN 02/27/2018 GURPREET CAMPOVERDE MD Ot H25.11 AGE-RELATED NUCLEAR CATARACT, RIGHT EYE 02/27/2018 GURPREET CAMPOVERDE MD Ot I10 ESSENTIAL (PRIMARY) HYPERTENSION 02/27/2018 GURPREET CAMPOVERDE MD Ot K21.9 GASTRO-ESOPHAGEAL REFLUX DISEASE WITHOUT 02/27/2018 GURPREET CAMPOVERDE MD Ot Z79.899 OTHER ASSOCIATE DIRECTOR OF SALES (CURRENT) DRUG THERAPY 03/03/2018 GURPREET CAMPOVERDE MD Ot H25.11 AGE-RELATED NUCLEAR CATARACT, RIGHT EYE 03/03/2018 GURPREET CAMPOVERDE MD Ot I10 ESSENTIAL (PRIMARY) HYPERTENSION 03/03/2018 GURPREET CAMPOVERDE MD Ot K21.9 GASTRO-ESOPHAGEAL REFLUX DISEASE WITHOUT 03/03/2018 GURPREET CAMPOVERDE MD Ot Z79.899 OTHER LONG-TERM (CURRENT) DRUG THERAPY 03/05/2018 GURPREET CAMPOVERDE MD Ot H25.11 AGE-RELATED NUCLEAR CATARACT, RIGHT EYE 03/05/2018 GURPREET CAMPOVERDE MD Ot I10 ESSENTIAL (PRIMARY) HYPERTENSION 03/05/2018 GURPREET CAMPOVERDE MD Ot K21.9 GASTRO-ESOPHAGEAL REFLUX DISEASE WITHOUT 03/05/2018 GURPREET CAMPOVERDE MD Ot Z79.899 OTHER LONG-TERM (CURRENT) DRUG THERAPY 03/18/2018 GURPREET CAMPOVERDE MD Ot Z01.818 ENCOUNTER FOR OTHER PREPROCEDURAL EXAMIN Procedures There is no data. Results There is no data. Encounters ACCT No. Visit Date/Time Discharge Status Pt. Type Provider Facility Loc./Unit Complaint [id number] 03/16/2018 05:35:00 03/16/2018 12:02:00 DIS Outpatient GURPREET CAMPOVERDE MD [facility] PREOP CATARACT LEFT EYE [id number] 02/27/2018 05:55:00 02/27/2018 07:35:00 DIS Outpatient GURPREET CAMPOVERDE MD [facility] RIGHT EYE CATARACT [id number] 02/24/2018 05:37:00 02/24/2018 11:59:00 DIS Outpatient GURPREET CAMPOVERDE MD [facility] PREOP CATARACT RIGHT EYE [id number] 01/23/2018 11:00:00 01/23/2018 23:59:59 CLS Preadmit GURPREET CAMPOVERDE MD [facility] CATARACT RIGHT EYE [id number] 01/19/2018 06:50:00 01/19/2018 15:10:00 DIS Outpatient GURPREET CAMPOVERDE MD [facility] PREOP CATARACT RIGHT EYE [id number] 08/28/2017 20:41:00 08/28/2017 22:35:00 DIS Emergency ANALI WALKER [facility] ER FALL;HEAD INJ [id number] 03/26/2017 08:17:00 03/26/2017 09:25:00 DIS Outpatient OPHELIA LOPES DO [facility] REHAB R SHOULDER IMPINGEMENT SYNDROME [id number] 02/03/2017 07:18:00 02/03/2017 09:35:00 DIS Outpatient BALTAZAR BANKS MD [facility] ENDO SCREENING [id number] 01/30/2017 05:35:00 01/30/2017 12:51:00 DIS Outpatient BALTAZAR BANKS MD [facility] PREOP COLONOSCOPY [id number] 05/23/2015 09:26:00 05/23/2015 23:59:59 CLS Outpatient COREY FARIAS APRN [facility] RAD SCREENING [id number] 04/12/2013 09:21:00 04/12/2013 23:59:59 CLS Outpatient ROCCO ZAMBRANO [facility] RAD SCREENING [id number] 01/07/2013 10:29:00 01/07/2013 23:59:59 CLS Outpatient ROCCO ZAMBRANO [facility] RAD THYROID NODULE [id number] 03/20/2018 05:59:00 ACT Outpatient NIRALI BRAVO, GURPREET Valenzuela [facility] SDC LEFT EYE CATARACT [id number] 12/30/2011 12:30:00 Document Registration [id number] 09/30/2011 06:39:00 Document Registration [id number] 09/27/2011 08:25:00 Document Registration [id number] 08/26/2011 07:42:00 Document Registration [id number] 07/24/2011 08:11:00 Document Registration [id number] 06/13/2011 08:20:00 Document Registration [id number] 06/04/2011 07:41:00 Document Registration [id number] 06/22/2010 05:32:00 Document Registration [id number] 06/21/2010 09:58:00 Document Registration [id number] 06/11/2010 08:13:00 Document Registration 000 01/05/2017 11:20:01 01/05/2017 23:59:59 CLS Outpatient
[2018-03-20 06:12] VITALS: BP 141/78
[2018-03-20] MEDS ORDERED: TIMOLOL MALEATE 0.5% 5 ML (TIMOPTIC) BTL OU PRN (06:15)
[2018-03-20] MEDS ORDERED: POVIDONE (BETADINE) OPHTH SOLN 5% 30 ML OP ONE (06:15)
[2018-03-20] MEDS ORDERED: MOXIFLOXACIN OPHTH SOLN 5 MG/ML 0.3 ML SYRINGE OP ONE (06:15)
[2018-03-20] MEDS ORDERED: LIDOCAINE PF 1% 2 ML AMP IR PRN (06:15)
[2018-03-20] MEDS: TETRACAINE 0.5% OPHTH SOLN 4 ML BTL (SINGLE DOSE ONLY) OU PRN ×4 (06:19→06:35)
[2018-03-20] MEDS: PHENYLEPHRINE 10% OPHTH (NEO-SYN) 5 ML BTL OU SCH ×3 (06:26→06:35)
[2018-03-20] MEDS: CYCLOPENTOLATE 1% (CYCLOGYL) 2 ML DROPS OP SCH ×3 (06:26→06:35)
[2018-03-20] MEDS ORDERED: MIDAZOLAM 2 MG/2 ML (VERSED) VIAL ONE (06:39)
--- NOTE | 2018-03-20 06:54 | Ophthalmologist Pre-Op Note ---
Pre-Operative Progress Note H&P Reviewed The H&P was reviewed, patient examined and no changes noted. Date H&P Reviewed: Mar 20, 2018 Time H&P Reviewed: 06:53 Pre-Op Dx Cataract, Left Eye GURPREET CAMPOVERDE MD Mar 20, 2018 06:54
--- NOTE | 2018-03-20 07:29 | Ophthalmology Operative Report ---
Cataract removal/placement IOL PREOPERATIVE DIAGNOSIS: Cataract Left Eye POSTOPERATIVE DIAGNOSIS: Cataract Left Eye PROCEDURE: Cataract removal and placement of posterior chamber implant, left eye SURGEON: Michael Campoverde ANESTHESIA: Topical with sedation COMPLICATIONS: None ESTIMATED BLOOD LOSS: Minimal DESCRIPTION OF PROCEDURE: After proper informed consent was obtained, the patient, a 72 female, was taken to the Operating Room and the left eye was anesthetized with tetracaine. The left eye was then prepped and draped in the usual manner. A wire lid speculum was placed. A paracentesis was made at the left hand position. Preservative free lidocaine was injected into the anterior chamber followed by viscoelastic. A clear corneal incision was made in the temporal position. A capsulorrhexis was preformed and the central nuclear and cortical material were removed. The posterior capsule was polished and an Kris 20.0 AU00T0 was placed into the capsular bag. The residual viscoelastic was aspirated and balanced saline solution was injected into the anterior chamber. Moxifloxacin was injected into the anterior chamber. The wound was checked and found to be water tight. The patient tolerated the procedure well without complications. MICHAEL CAMPOVERDE MD Mar 20, 2018 07:29
[2018-03-20 07:35] VITALS: BP 142/75
[2018-03-20] MEDS ORDERED: acetaZOLAMIDE ER 500 MG CAP (DIAMOX SEQUELS) PO ONE (08:00)
--- NOTE | 2018-03-20 11:10 | Anesthesia-General Post-Op ---
MAC Patient Condition Mental Status/LOC: Same as Preop Cardiovascular: Satisfactory Nausea/Vomiting: Absent Respiratory: Satisfactory Pain: Controlled Complications: Absent Post Op Complications Complications None Follow Up Care/Instructions Patient Instructions None needed. Anesthesiology Discharge Order Discharge Order Patient is doing well, no complaints, stable vital signs, no apparent adverse anesthesia problems. No complications reported per nursing. VY FAULKNER CRNA Mar 20, 2018 11:10
== END 2018-03-20 07:35 | disposition home or self-care (01) ==
LOC: SDC 05:59
PROVIDERS: ATTEND Specialist
DX: H25.12 Age-related nuclear cataract, left eye (principal); I10 Essential (primary) hypertension; K21.9 Gastro-esophageal reflux disease without esophagitis; Z79.899 Other long term (current) drug therapy

== ENCOUNTER → 2020-06-13 | Outpatient (CLI) | payer BC ==
[~2020-06-13] MED LIST changes: +LOSA25TA41 PO; -LOSA25TA6 PO; +OMEP40CA27 PO; -OMEP40CA36 PO
--- NOTE | 2020-06-13 13:06 | Diagnostic Imaging Report ---
INDICATION: Left knee pain. FINDINGS: Three views of the left knee show no fracture, dislocation, or other acute abnormalities. IMPRESSION: Negative left knee. Dictated by: Dictated on workstation # [id number]
== END ==
LOC: RAD 12:20
PROVIDERS: ATTEND Nurse Practitioner Family
DX: M25.562 Pain in left knee (principal)
CPT/HCPCS: 73562

== ENCOUNTER → 2020-06-20 | Outpatient (CLI) | payer BC ==
--- NOTE | 2020-06-20 14:48 | Diagnostic Imaging Report ---
PROCEDURE: MRI left joint lower extremity without contrast. TECHNIQUE: Multiplanar, multisequence non contrast-enhanced MRI of the left lower extremity was accomplished. INDICATION: Left knee pain after falls COMPARISON: Radiographs from 06/13/2020 FINDINGS: No acute fracture is seen in the left knee. Alignment appears normal. There is no significant joint effusion. There is a small leaking Tony's cyst. The articular cartilage and the patellofemoral compartment demonstrate mild thinning and surface irregularity. The articular cartilage in the medial compartment demonstrates moderate thinning and surface irregularity. The cartilage in the lateral compartment demonstrates mild thinning with no full-thickness defects. There is a horizontal tear of the posterior horn of the medial meniscus extending into the body with a radial tear at the free edge of the body. The lateral meniscus demonstrates no full-thickness defects. The anterior and posterior cruciate ligaments are intact. The medial collateral ligament appears intact. The lateral collateral ligamentous complex is intact. The extensor mechanism is intact. The medial and lateral retinacula appear intact. IMPRESSION: 1. Tear of the medial meniscus in the left knee. 2. Mild cartilage loss in the left knee with no large full-thickness defects. 3. Small leaking Tony's cyst. Dictated by: Dictated on workstation # [id number]
== END ==
LOC: RAD 12:51
PROVIDERS: ATTEND Nurse Practitioner Family
DX: S83.242A Other tear of medial meniscus, current injury, left knee, initial encounter (principal); S86.812A Strain of other muscle(s) and tendon(s) at lower leg level, left leg, initial encounter; W19.XXXA Unspecified fall, initial encounter
CPT/HCPCS: 73721

== ENCOUNTER → 2020-08-09 | Outpatient (CLI) | payer BC ==
--- NOTE | 2020-08-09 09:11 | Diagnostic Imaging Report ---
INDICATION: Routine screening. COMPARISON: 05/23/2015 and 04/12/2013. TECHNIQUE: 2D and 3D bilateral screening mammography was performed with CAD. FINDINGS: Both breasts remain heterogeneously dense, limiting the sensitivity of mammography. The parenchymal pattern is stable. No mass or malignant appearing microcalcifications are seen. The axillae are unremarkable. IMPRESSION: No mammographic features suspicious for malignancy are identified. ACR BI-RADS Category 1: Negative. Result letter will be mailed to the patient. Note: At least 10% of breast cancer is not imaged by mammography. Dictated by: Dictated on workstation # [id number]
== END ==
LOC: RAD 07:26
PROVIDERS: ATTEND Nurse Practitioner Family
DX: Z12.31 Encounter for screening mammogram for malignant neoplasm of breast (principal)
CPT/HCPCS: 77063; 77067

== ENCOUNTER → 2021-02-20 | Outpatient (CLI) | payer BC ==
[~2021-02-20] MED LIST changes: -OMEP40CA27 PO; +OMEP40CA6 PO; -TOLT4CAP13 PO; +TOLT4CAP26 PO
--- NOTE | 2021-02-20 10:07 | Diagnostic Imaging Report ---
INDICATION: Postmenopausal. COMPARISON: None FINDINGS: The bone mineral density of the spine and hips and femoral necks was measured. The total T score of the spine is 0.0. The total T score for the left hip is -0.5 and for the right hip -0.7. The T score for the left femoral neck is -0.9 and for the right femoral neck -1.5. AP Spine L1-L4: [BMD (g/cm2): 1.198] [T-Score: 0.0] [Z-Score: 1.4] [BMD Previous: 1.371] [BMD % Change: -12.6] LT Hip Neck: [BMD (g/cm2): 0.915] [T-Score: -0.9] [Z-Score: 0.8] LT Hip Total: [BMD (g/cm2):0.942] [T-Score:-0.5] [Z-Score: 1.0] [BMD Previous: 1.136] [BMD % Change: -17.1] RT Hip Neck: [BMD (g/cm2):0.836] [T-Score:-1.5] [Z-Score:0.2] RT Hip Total: [BMD (g/cm2):0.914] [T-score:-0.7] [Z-Score:0.7] [BMD Previous:1.110] [BMD % Change:-17.7] *Indicates significant change from prior examination based on 95% confidence level. World Health Organization criteria for BMD interpretation classify patients as Normal (T-score at or above -1.0), Osteopenic (T-score between -1.0 and -2.5) or Osteoporotic (T-score at or below -2.5). LIMITATIONS AND MODIFICATION: None. FRACTURE RISK (FRAX SCORE): The ten year probability of (%): Major Osteoporotic Fracture: [10.8] Hip Fracture: [2.0] IMPRESSION: 1. The T score for the spine, the hips and the left femoral neck are within normal limits. 2. However, the T score for the right femoral neck does indicate osteopenia. 3. See below National Osteoporosis Foundation guidelines on when to potentially initiate pharmacologic therapy. Based on the National Osteoporosis Foundation Guidelines, pharmacologic treatment should be initiated in any of the following, unless clinical conditions suggest otherwise: * Any patient with prior fragility fracture of the hip or vertebrae. A spine fracture indicates 5X risk for subsequent spine fracture and 2X risk for subsequent hip fracture. * Osteoporosis (T-score <-2.5). * Postmenopausal women and men age 50 and older with low bone mass/osteopenia (T-score between -1.0 and -2.5) by DXA and 10-year major osteoporotic fracture greater than 20% or a 10-year probability of hip fracture greater than 3%. These fracture risks are supplied above in the FRAX score, if applicable. * Clinician judgement and/or patient preferences may indicate treatment for people with 10-year fracture probabilities above or below these levels. Dictated by: Dictated on workstation # [id number]
== END ==
LOC: RAD 09:17
PROVIDERS: ATTEND Nurse Practitioner Family
DX: Z78.0 Asymptomatic menopausal state (principal)
CPT/HCPCS: 77080

== ENCOUNTER 2021-08-29 05:59 | Outpatient (CLI) | payer BC ==
[~2021-08-29] VITALS: Ht 162.6 cm; Wt 72.1 kg
[2021-08-31] MEDS ORDERED: CALC-50 PO (09:23)
== END 2021-08-31 09:27 | disposition home or self-care (01) ==
LOC: PREOP 05:59
PROVIDERS: ATTEND Internal Medicine
DX: Z01.818 Encounter for other preprocedural examination (principal)

== ENCOUNTER 2021-09-07 08:03 | Day surgery (SDC) | payer BC, MEDICARE ==
--- NOTE | 2021-08-29 07:41 | HISTORY AND PHYSICAL ---
DATE OF SERVICE: PANENDOSCOPY HISTORY AND PHYSICAL DATE OF ADMISSION: 09/07/2021. HISTORY OF PRESENT ILLNESS: The patient is a 76-year-old white female referred by Dr. Nichole for panendoscopy for recent history of anemia and past history of colon polyps. There is a strong family history for gastric cancer in two brothers; apparently, both diagnosed in her early 70s; one had history of alcohol use disorder and the other, she is not sure of. She has also had a sister diagnosed with colon cancer in her late 50s and has had one sister with liver cancer. She denies any change in weight, melena or bright red blood per rectum or dysphagia. She reports as long she takes omeprazole, she does not have reflux symptoms, but does not recall whether or not she has had an EGD in the past. 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 She has a history of overactive bladder and hyperlipidemia with no known history of cardiovascular disease and no reported hypertension. She has a history of type 2 diabetes, currently diet controlled. PAST SURGICAL HISTORY: She has had a cholecystectomy, fundoplication, and a total abdominal hysterectomy for benign reasons. SOCIAL HISTORY: The patient is retired. She is a former smoker, 10 to 20 pack year as reported, quit many years ago. No significant alcohol intake history. REVIEW OF SYSTEMS: CONSTITUTIONAL: Denies night sweats, chills, fever or change in weight. GASTROINTESTINAL: As noted in the HPI. PULMONARY: Denies cough, wheezing or shortness of breath. CARDIOVASCULAR: Denies orthopnea, PND, pedal edema or dyspnea on exertion. PHYSICAL EXAMINATION: GENERAL: Reveals a white female appeared to be in no acute distress. VITAL SIGNS: Weight 159 pounds reportedly stable. Blood pressure 132/78. HEENT: Unremarkable. Sclerae nonicteric. CHEST: Clear. CARDIOVASCULAR: Reveals regular rate and rhythm without significant murmur, S3 or S4. ABDOMEN: Soft, supple without mass or organomegaly. She has some mild left lower quadrant abdominal pain to palpation without rebound or guarding. Bowel sounds are positive. EXTREMITIES: Reveal no cyanosis, clubbing or edema. ASSESSMENT AND PLAN: Due to reported recent mild anemia for which CBC was repeated today, but no results available in an individual with family history for colon cancer as well as family history for gastric cancer, carrying a personal diagnosis of Rashid's, we will be performing colonoscopy as well as EGD evaluation for diagnostic purposes. I thank you for the referral of this pleasant lady. Prep instructions were given. Electronic medical record was reviewed. Job ID: [id number] DocumentID: [id number] Dictated Date: 08/15/2021 17:02:59 Check Examiner Date: 08/15/2021 17:15:24 Dictated By: OPHELIA TAYLOR MD
[~2021-09-07] VITALS: Ht 162 cm; Wt 72.1 kg
[~2021-09-07 08:03] MED LIST changes: +CALC-50 PO
[2021-09-07] MEDS ORDERED: LACTATED RINGERS 1,000 ML IV STA (08:07)
[2021-09-07 08:15] VITALS: BP 140/86
[2021-09-07] MEDS ORDERED: HURRICAINE EXT TUBE (BENZOCAINE) XX PRN (08:15)
[2021-09-07] MEDS ORDERED: LACTATED RINGERS 1,000 ML IV ONE (08:52)
[2021-09-07] MEDS ORDERED: ONDANSETRON 4 MG/2 ML (SDV) Z0FRAN ONE (08:52)
[2021-09-07] MEDS ORDERED: PROPOFOL INJECTION 50 ML IV ONE (08:53)
--- NOTE | 2021-09-07 08:54 | Pre-Op Note & Conscious Sedat ---
Pre-Operative Progress Note H&P Reviewed The H&P was reviewed, patient examined and no changes noted. Date H&P Reviewed: Sep 07, 2021 Time H&P Reviewed: 08:30 Conscious Sedation Pre-Proced ASA Score 3 For ASA 3 and 4: Consider anesthesia and medical clearance. Also, for patients with a history of failed moderate sedation consider anesthesia. Airway Lungs Heart ASA score ASA 1: a normal healthy patient ASA 2: a patient with a mild systemic disease (mid diabetes, controlled hypertension, obesity ASA 3: a patient with a severe systemic disease that limits activity (angina, COPD, prior Myocardial infarction) ASA 4: a patient with an incapacitating disease that is a constant threat to life (CHF, renal failure) ASA 5: a moribund patient not expected to survive 24 hrs. (ruptured aneurysm) ASA 6: a declared brain- patient whose organs are being harvested. For emergent operations, add the letter E after the classification Mallampati Classification Grade 2 Sedation Plan Analgesia, Amnesia, Plan communicated to team members, Discussed options with patient/fam, Discussed risks with patient/fam The patient is an appropriate candidate to undergo the planned procedure, sedation, and anesthesia. The patient immediately re-assessed prior to indication. OPHELIA TAYLOR MD Sep 07, 2021 08:54
[2021-09-07 09:35] VITALS: BP 84/52
[2021-09-07 09:38] VITALS: BP 84/51
[2021-09-07 10:05] VITALS: BP 107/80
--- NOTE | 2021-09-07 11:49 | Anesthesia-General Post-Op ---
MAC Patient Condition Mental Status/LOC: Same as Preop Cardiovascular: Satisfactory Nausea/Vomiting: Absent Respiratory: Satisfactory Pain: Controlled Complications: Absent Post Op Complications Complications None Follow Up Care/Instructions Patient Instructions None needed. Anesthesiology Discharge Order Discharge Order Patient is doing well, no complaints, stable vital signs, no apparent adverse anesthesia problems. No complications reported per nursing. ANGELA ARRIETA CRNA Sep 07, 2021 11:49
--- NOTE | 2021-09-07 17:20 | OPERATIVE REPORT ---
DATE OF SERVICE: PANENDOSCOPY SUMMARY INDICATION FOR THE PROCEDURE: Anemia, history of colon polyps in addition to gastroesophageal reflux disease with family history for gastric cancer. DESCRIPTION OF PROCEDURE: The patient was placed in the left lateral decubitus position. The endoscope was inserted in the oral cavity and under direct visualization, the esophagus was intubated. The endoscope was passed down the esophagus through stomach and into the second portion of the duodenum. A careful inspection was made as the endoscope was withdrawn. The patient tolerated the procedure well. FINDINGS: The posterior pharynx, true and false vocal folds, epiglottis and arytenoid aperture were unremarkable to gross inspection. Proximal and mid esophagus were unremarkable. There is a moderate size 3 to 4 cm hiatal hernia present without evidence for erosive esophagitis. The Z line was distinct. There was no evidence to suggest Rashid's change. Otherwise, the cardia of the stomach was unremarkable. The fundus, antrum, pylorus, pyloric channel, duodenal bulb and second portion of the duodenum were unremarkable as well. ASSESSMENT: Moderate 3 to 4 cm hiatal hernia is present without evidence for erosive esophagitis and no potential bleeding sites being identified on EGD. Prior to undergoing colonoscopy, digital rectal evaluation was performed. Anal sphincter tone was normal. Perianal reflexes intact. Digital evaluation is compatible with an anterior rectocele, but otherwise unremarkable. The colonoscope was then inserted into the rectum and under direct visualization advanced to cecum. The cecum was identified by identification of ileocecal valve and the cecal strap. Photographic documentation was obtained. Careful inspection was made as the colonoscope was withdrawn. Quality of the prep was good. FINDINGS: There was no evidence for internal or external hemorrhoids and the rectum was unremarkable. Moderate diverticular disease predominantly noted in the sigmoid colon with several in the ascending colon was present without evidence for diverticulitis. There was no evidence for visible blood throughout the colon. The descending colon and splenic flexure were unremarkable. Present in the distal transverse colon was a sessile 3 x 5 mm polyp, it was photographed and biopsied and ablated with no subsequent blood loss. The remainder of the transverse colon and hepatic flexure were unremarkable. Several small ascending colonic diverticulum were noted, which was otherwise unremarkable and the cecum was unremarkable. ASSESSMENT: 1. Moderate diverticular disease predominantly in the sigmoid colon was present, to a lesser extent descending colon without evidence for diverticulitis. 2. One 3 x 5 cm sessile polyp was noted in the distal transverse colon. It was biopsied and ablated with no subsequent blood loss. As long as there are no surprises on histopathology report, considering the patient's age, I would not advocate future screening colonoscopy. I thank you for the referral of this pleasant lady. Job ID: [id number] DocumentID: [id number] Dictated Date: 09/07/2021 09:47:13 Assistant Manager Date: 09/07/2021 17:20:02 Dictated By: OPHELIA TAYLOR MD
== END 2021-09-07 10:13 | disposition home or self-care (01) ==
LOC: ENDO 08:03
PROVIDERS: ATTEND Internal Medicine
DX: D12.3 Benign neoplasm of transverse colon (principal); D64.9 Anemia, unspecified; K21.9 Gastro-esophageal reflux disease without esophagitis; K44.9 Diaphragmatic hernia without obstruction or gangrene; K57.30 Diverticulosis of large intestine without perforation or abscess without bleeding; Z86.010 Personal history of colon polyps; Z87.891 Personal history of nicotine dependence; Z80.0 Family history of malignant neoplasm of digestive organs

== ENCOUNTER 2023-01-26 07:50 | Emergency (ER) | payer BC, MEDICARE ==
[~2023-01-26] VITALS: Ht 162 cm; Wt 70.3 kg
--- NOTE | 2023-01-26 08:05 | ED Fever ---
History of Present Illness General Stated Complaint: HEADACHE,COUGH,FEVER Source: patient Exam Limitations: no limitations History of Present Illness Date Seen by Provider: Jan 26, 2023 Time Seen by Provider: 07:52 Initial Comments 77-year-old female with past medical history of hypertension and hyperlipidemia coming in due to fever, productive cough, and previous nonbloody nonbilious emesis and nonbloody diarrhea. Fever started Friday morning around 101 degrees. Last vomited that day, and had diarrhea until Friday. Today the productive cough has picked up somewhat, she was concerned she could have pneumonia. Has not had any fever in a couple of days now. 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 Otherwise denying any chest pain, shortness of breath, abdominal pain, current nausea, current diarrhea, dysuria, flank pain, rash, or any other concerns. Allergies and Home Medications Allergies Coded Allergies: diphenhydramine HCl (Unverified Allergy, Unknown, 01/30/17) Patient Home Medication List Home Medication List Reviewed: Yes Calcium Carbonate/Vitamin D3 (Calcium 500 + Vit D3 400 Tab) 500 Mg Calcium-10 Mcg (400 Unit) Tablet, 1 EACH PO DAILY, (Reported) Entered as Reported by: LISANDRA JC on 08/31/21 0923 Doxycycline Hyclate (Doxycycline Hyclate) 100 Mg Tablet, 100 MG PO BID Prescribed by: ESTEPHANIA CALI on 01/26/23 0843 Losartan Potassium (Losartan Potassium) 25 Mg Tablet, 25 MG PO DAILY, (Reported) Entered as Reported by: CAR MAHONEY on 01/30/17 1231 Omeprazole (Omeprazole) 40 Mg Capsule.dr, 40 MG PO DAILY, (Reported) Entered as Reported by: CAR MAHONEY on 01/30/17 1231 Ondansetron (Ondansetron Odt) 4 Mg Tab.rapdis, 4 MG SL Q6H PRN for NAUSEA/VOMITING Prescribed by: ESTEPHANIA CALI on 01/26/23 0843 Pravastatin Sodium (Pravastatin Sodium) 40 Mg Tablet, 40 MG PO DAILY, (Reported) Entered as Reported by: CAR MAHONEY on 01/30/17 1231 Tolterodine Tartrate (Tolterodine Tartrate ER) 4 Mg Cap.er.24h, 4 MG PO DAILY, (Reported) Entered as Reported by: CAR MAHONEY on 01/30/17 1231 Review of Systems Review of Systems Constitutional: fever, malaise EENTM: no symptoms reported Respiratory: cough Cardiovascular: no symptoms reported Gastrointestinal: see HPI Genitourinary: no symptoms reported Musculoskeletal: no symptoms reported Skin: no symptoms reported Psychiatric/Neurological: No Symptoms Reported Past Ghxvgbu-Dqnnhj-Tfttxw Hx Patient Social History Tobacco Use?: No Substance use?: No Alcohol Use?: No Immunizations Up To Date Tetanus Booster (TDap): Unknown First/Initial COVID19 Vaccinat: 2020 Second COVID19 Vaccination Carter: 2020 Third COVID19 Vaccination Date: 2020 Seasonal Allergies Seasonal Allergies: No Past Medical History Surgeries: Yes Gallbladder, Hysterectomy Respiratory: No Cardiac: Yes High Cholesterol, Hypertension Neurological: No Reproductive Disorders: No 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 0.0oz. 63.511276cu; 27.47 BMI Method:Stated General Appearance: WD/WN, no apparent distress Eyes: Bilateral Eye Normal Inspection HEENT: PERRL/EOMI, normal ENT inspection, pharynx normal Neck: non-tender, full range of motion, supple, normal inspection Respiratory: chest non-tender, lungs clear, normal breath sounds, no respiratory distress, no accessory muscle use Cardiovascular: regular rate, rhythm, no edema Gastrointestinal: normal bowel sounds, non tender, soft; No distended, No guarding, No rebound Extremities: normal range of motion, non-tender, normal inspection, no pedal edema, no calf tenderness, normal capillary refill Neurologic/Psychiatric: no motor/sensory deficits, alert, normal mood/affect Skin: normal color, warm/dry Progress/Results/Core Measures Suspected Sepsis SIRS Temperature: Pulse: Respiratory Rate: Blood Pressure / Mean: Results/Orders Lab Results Laboratory Tests Test 01/26/23 08:04 Range/Units Influenza Type A (RT-PCR) Not Detected Not Detecte Influenza Type B (RT-PCR) Not Detected Not Detecte SARS-CoV-2 RNA (RT-PCR) Not Detected Not Detecte My Orders Orders - ESTEPHANIA CALI MD Chest 1 View, Ap/Pa Only (01/26/23 08:02) Influenza A And B By Pcr (01/26/23 08:02) Covid 19 Inhouse Test (01/26/23 08:02) Acetaminophen Tablet (Acetaminophen Ta (01/26/23 08:15) Medications Given in ED Current Medications Medications Dose Ordered Sig/Marlee Route Start Time Stop Time Status Last Admin Dose Admin Acetaminophen 1,000 mg ONCE ONCE PO 01/26/23 08:15 01/26/23 08:16 DC 01/26/23 08:10 1,000 MG Vital Signs/I&O 01/26/23 08:03 Temp 36.6 Pulse 97 Resp 18 B/P (MAP) 147/114 (125) Pulse Ox 98 Capillary Refill : Progress Note : Progress Note 77-year-old female with above history coming in due to URI type symptoms and previous vomiting and diarrhea. ABCs were intact and vitals were stable on presentation. She has been afebrile for couple days and is afebrile here. We will give her some Tylenol for discomfort. Chest x-ray ordered due to the productive cough to assess for signs of pneumonia. My interpretation I do not see any significant infiltrate, pneumothorax, or pleural effusion. Flu and COVID testing were negative. On reassessment, patient continues to be well-appearing. Her abdomen is soft and nontender, I do not believe she needs other labs or imaging in regards to this. I believe she stable for discharge with outpatient follow-up. She was sent home with strict return precautions. Diagnostic Imaging Diagonstic Imaging: Xray (chest) Comments NAME: INDIA NAGEL MED REC#: [id number] PT STATUS: REG ER : 1945 PHYSICIAN: ESTEPHANIA CALI MD ADMIT DATE: 01/26/23/ER Draft Date of Exam:01/26/23 CHEST 1 VIEW, AP/PA ONLY EXAM: CHEST 1 VIEW, AP/PA ONLY INDICATION: Cough. Fever. Shortness of breath. COMPARISON: None. FINDINGS: Normal heart size and central pulmonary vascularity. Lungs are clear. No pleural effusion or pneumothorax. No acute osseous findings. IMPRESSION: No acute cardiopulmonary findings Dictated on workstation # [id number] Dict: 01/26/23819 Trans: 01/26/23826 [facility] [id number] Interpreted by: ANGELA MEDLEY MD Electronically signed by: Departure Impression Primary Impression: Upper respiratory infection Qualified Codes: J06.9 - Acute upper respiratory infection, unspecified Disposition: HOME, SELF-CARE Condition: Stable Departure-Patient Inst. Decision time for Depature: 08:45 Referrals: VENU URBINA MD (PCP/Family) Primary Care Physician Patient Instructions: Viral Syndrome (DC) Add. Discharge Instructions: This appears to be viral in nature. We are not seeing any obvious pneumonia on the x-ray. Your flu and COVID testing were negative. We will send "[id number]" antibiotics to your pharmacy. If you are not improving in the next several days, or you develop fever again, we would want you to fill that prescription. Nausea medicines were also sent to your pharmacy. Scripts Ondansetron (Ondansetron Odt) 4 Mg Tab.rapdis 4 MG SL Q6H PRN for NAUSEA/VOMITING for 5 Days, #20 TAB Prov: ESTEPHANIA CALI MD 01/26/23 Doxycycline Hyclate (Doxycycline Hyclate) 100 Mg Tablet 100 MG PO BID for 7 Days, #14 TAB 0 Refills Prov: ESTEPHANIA CALI MD 01/26/23 ESTEPHANIA CALI MD Jan 26, 2023 08:05
[2023-01-26] MEDS ORDERED: ACETAMINOPHEN 500 MG TABLET PO ONE (08:15)
--- NOTE | 2023-01-26 08:28 | Diagnostic Imaging Report ---
EXAM: CHEST 1 VIEW, AP/PA ONLY INDICATION: Cough. Fever. Shortness of breath. COMPARISON: None. FINDINGS: Normal heart size and central pulmonary vascularity. Lungs are clear. No pleural effusion or pneumothorax. No acute osseous findings. IMPRESSION: No acute cardiopulmonary findings Dictated by: Dictated on workstation # [id number]
[2023-01-26] MEDS ORDERED: ONDA4TAB11 SL (08:43)
[2023-01-26] MEDS ORDERED: DOXY100T2 PO (08:43)
[2023-01-26 08:53] VITALS: BP 130/81
== END 2023-01-26 08:53 | disposition home or self-care (01) ==
LOC: EDUNIT# 07:50 → ER 07:52
DX: J06.9 Acute upper respiratory infection, unspecified (principal)
CPT/HCPCS: 71045; 87636